=== PATIENT | male | born 1960 ===

== ENCOUNTER 2021-10-02 09:18 | Day surgery (SDC) | payer OTHER ==
[~2021-10-02] VITALS: Ht 165.1 cm; Wt 69.9 kg
== END 2021-10-02 11:55 | disposition home or self-care (01) ==
LOC: ORSCSDS 09:18
PROVIDERS: Surgery
PROC: 0DJD8ZZ Inspection of Lower Intestinal Tract, Via Natural or Artificial Opening Endoscopic (ICD-10-PCS; principal; 2021-10-02 10:30)
DX: Z12.11 Encounter for screening for malignant neoplasm of colon (principal); E78.5 Hyperlipidemia, unspecified; Z87.891 Personal history of nicotine dependence
CPT/HCPCS: J2704; J7120